=== PATIENT | male | born 1990 | race Caucasian/White ===

== ENCOUNTER 2016-06-28 11:00 | Emergency (ER) | payer OTHER ==
[2016-06-28 11:28] VITALS: RESP 14; TEMP 98.7
--- NOTE | 2016-06-28 11:54 | DI ---
LEFT FOOT, 06/28/2016 11:17 AM: Clinical History: Trauma. Previous Exam: None at this facility. 3 views are submitted. There are nondisplaced oblique fractures of the distal third of the third and fourth metatarsal bones. No other fractures are identified. There is no evidence of a Lisfranc fractu re. Reading: Nondisplaced fractures of the distal thirds of the third and fourth metatarsal bones.
--- NOTE | 2016-06-28 11:59 | PDOC ---
Foot / Ankle Injury - General Chief Complaint: Lower Extremity Problem/Injury Stated Complaint: DROPPED STEEL PIPE ON L FOOT Date Seen by Provider: 06/28/16 Time Seen by Provider: 11:10 Source: POSITIVE: Patient Exam Limitations: POSITIVE: No limitations Nurse's Notes Reviewed & Considered: Yes - History of Present Illness Initial Comments: The patient is a 25-year-old male. 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 He states he has not been able to ambulate since. Incident occurred about one hour [employer] WORK[employer]. He has no paresthesias or gross sensory or motor symptoms. He denies any other injuries. Have you received a tetanus shot in the past 10 years?: No Location: Left Foot Timing: REPORTS: Abrupt Duration: 1 hour Severity: Moderate Quality: REPORTS: "Pain" Location at Time of Onset: REPORTS: Work Context: REPORTS: Direct Blow Modifying Factors: REPORTS: Movement, Other (exacerbated by weightbearing) Associated Symptoms: DENIES: Tingling Distally, Numbness Distally, Swelling, Snapping Sensation, Popping Sensation, Other Any Prior Injuries Related to Current Complaint?: No - Patient Allergies Allergies/Adverse Reactions: Allergies Allergy/AdvReac Type Severity Reaction Status Date / Time No Known Allergies Allergy Verified 06/28/16 11:10 - Patient Home Medications Home Medications: Home Medications NK [No Home Medications Reported] 06/28/16 Past Medical History - heen HEENT History: Denies History Cardiovascular History: Hypertension Respiratory History: Denies History Gastrointestinal History: Denies History Genitourinary History: Denies History Endocrine History: Denies History Musculoskeletal History: Denies History Prosthesis or Implant: No Neurological History: Denies History Blood Disorders: Denies History Psychiatric History: Denies History History of Sexually Transmitted Diseases: No Male Reproductive History: Denies History Cancer History: Denies History In Past Year Been Physically Harmed or Verbally Threatened: No (PER PATIENT) History of MDRO: No History of Other Communicable Diseases: No Tobacco Use: Never Smoker Alcohol Use: Rarely Substance Use Type: None Previous Surgical History: Yes Type / Date of Surgery: TONSILLECTOMY Anesthesia Reactions: No Malignant Hyperthermia: No Family History of Malignant Hyperthermia: No Significant Family History: No pertinent family hx Past Medical History Reviewed: Reviewed - No Changes ROS - Limitations ROS Limitations: No Limitations Constitution: REPORTS: Denies Symptoms Cardiovascular: REPORTS: Denies Cardiac Symptoms Respiratory: REPORTS: Denies Resp Symptoms Neurological: REPORTS: Denies Neuro Symptoms Gastrointestinal: REPORTS: Denies GI Symptoms Endocrine: REPORTS: Denies Symptoms Musculoskeletal: REPORTS: Recent Injury (Left foot injury as above) Genitourinary: REPORTS: Denies Symptoms Eyes: REPORTS: Denies Symptoms ENT: REPORTS: Denies Symptoms Skin: REPORTS: Other (Contusion lateral aspect of distal left foot) Lympathic: REPORTS: Denies Lympathic Symptoms Immunologic: POSITIVE: Denies Symptoms Psychiatric: POSITIVE: Denies Psych Symptoms Foot / Ankle Exam - General Appearance General Appearance: POSITIVE: Alert, Cooperative, Mild Distress. NEGATIVE: No Acute Distress, No Evidence of Trauma (contusions swelling lateral aspect of distal left foot) - Extremities Foot: POSITIVE: Soft Tissue Tenderness, Bony Tenderness, Swelling, Ecchymosis, Limited ROM d/t Pain Ankle: POSITIVE: Normal Inspection, Non-Tender, Normal ROM, Stable Gait: POSITIVE: Gait not Tested d/t Pain Neuro: POSITIVE: Sensation Normal, Motor Normal Vascular: POSITIVE: No Vascular Compromise, Full Pulses, Equal Pulses Tendons: POSITIVE: Tendon Function Normal Skin: POSITIVE: See Diagram (ecchymosis lateral aspect of distal third fourth and fifth metatarsals) - Respiratory / CVS Respiratory / CVS: POSITIVE: Chest Non-Tender, No Respiratory Distress, Heart Sounds Normal, Regular Rate/Rhythm, Breath Sounds Normal Peripheral Pulses: Radial (R): 2+, Radial (L): 2+, Dorsalis-pedis (R): 2+, Dorsalis-pedis (L): 2+ Images - Lower Extremities Feet: 1 - Ecchymosis, swelling, tenderness Procedures - Splinting Time Splint Applied: 11:40 Location: soft cast and Cam Walker left foot and ankle Pre-Proc Neuro Vasc Exam: Normal Splint Type: CAM Walker, Crutches, Other (Soft bulky cast with web roll and Berry wrap (Acuna cast)) Splint Form: Short Extremity (As above) Applied By:: Nurse Post-Proc Neuro Vasc Exam: Normal Foot / Ankle Progress - Results Reviewed by me Pain Medication Addressed: POSITIVE: Yes, Patient Refused School/Work Release Addressed: POSITIVE: Yes (no work until cleared by orthopedist) Xrays/CTs/US Reviewed by me: Yes Discussed with Radiologist: No Radiology Results: POSITIVE: Left, Foot Radiology Findings: Oblique fractures shafts of third and fourth metatarsals at approximately the junction of the middle and distal thirds. - Patient's Progress Re-Examine Time:: 11:45 Re-Examine Comment: Soft cast and Cam Walker placed. Patient instructed in crutch walking. 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 We placed you in a bulky soft cast and Cam Walker. Please where the the dressing in Cam Walker. Use crutches and bear no weight whatsoever on your left foot. Follow-up in orthopedics in the next one or 2 days. Advil or Tylenol for pain. Elevate leg. Cool compresses. Do not return to work until cleared by orthopedics. Follow Up With: NONE,NONE [Primary Care Provider] - (Instructions as above. Follow-up in orthopedics. Return here anytime if condition worsens in any way.)
== END 2016-06-28 12:17 | disposition home or self-care (01) ==
LOC: ER 11:00
DX: S92.335A Nondisplaced fracture of third metatarsal bone, left foot, initial encounter for closed fracture (principal); S92.345A Nondisplaced fracture of fourth metatarsal bone, left foot, initial encounter for closed fracture; W20.8XXA Other cause of strike by thrown, projected or falling object, initial encounter; Y92.65 Oil rig as the place of occurrence of the external cause; Y99.0 Civilian activity done for income or pay
CPT/HCPCS: 73630; 99282; 99283

== ENCOUNTER → 2016-07-01 | Outpatient (CLI) | payer OTHER ==
--- NOTE | 2016-07-01 12:18 | DI ---
VENOUS DOPPLER ULTRASOUND OF THE LEFT LOWER EXTREMITY, 07/01/2016 10:34 AM: Clinical History: Left calf pain. Previous Exam: None. Technique: 2D real-time imaging is supplemented with color Doppler ultrasound. Compression and augmen tation maneuvers were performed. The deep venous system from the groin to the popliteal fossa is norm al. The greater saphenous vein is normal. Reading: Negative venous Doppler ultrasound of the left lower extremity.
== END ==
LOC: US 11:38
PROVIDERS: ATTEND Orthopaedic Surgery
DX: M79.662 Pain in left lower leg (principal)
CPT/HCPCS: 93971

== ENCOUNTER → 2016-07-04 | Outpatient (CLI) | payer SELFPAY ==
--- NOTE | 2016-07-04 16:47 | DI ---
XR FOOT COMPLETE MIN 3VW,07/04/2016 1:32 PM: Clinical History: Nondisplaced fracture the third metatarsal left foot. Previous Exam: June 28, 2016 Findings: 3 views of the left foot are obtained, and demonstrate nondisplaced fractures of the left third and f ourth mid metatarsals. There is some mild surrounding soft tissue thickening. Impression: Nondisplaced fractures of the left third and fourth metatarsals.
== END ==
LOC: ORTHO 13:40
PROVIDERS: ATTEND Orthopaedic Surgery
DX: S92.335A Nondisplaced fracture of third metatarsal bone, left foot, initial encounter for closed fracture (principal); S92.345A Nondisplaced fracture of fourth metatarsal bone, left foot, initial encounter for closed fracture
CPT/HCPCS: 73630

== ENCOUNTER → 2016-07-11 | Outpatient (CLI) | payer OTHER ==
--- NOTE | 2016-07-12 09:29 | DI ---
XR FOOT COMPLETE MIN 3VW,07/11/2016 1:56 PM: Clinical History: Displaced fourth metatarsal fracture. Previous Exam: July Findings: 3 views of the left foot are obtained, and demonstrate stable transverse fractures through the left t hird and fourth mid metatarsals. The surrounding soft tissues are unremarkable. There is no significa nt periosteal reaction seen at this time although there is some softening of the margins suggesting s ome early healing. Impression: Stable fractures of the left third and fourth mid metatarsals.
== END ==
LOC: ORTHO 14:04
PROVIDERS: ATTEND Orthopaedic Surgery
DX: S92.332D Displaced fracture of third metatarsal bone, left foot, subsequent encounter for fracture with routine healing (principal); S92.345D Nondisplaced fracture of fourth metatarsal bone, left foot, subsequent encounter for fracture with routine healing
CPT/HCPCS: 73630

== ENCOUNTER → 2016-07-22 | Outpatient (CLI) | payer OTHER ==
--- NOTE | 2016-07-24 15:04 | DI ---
XR FOOT COMPLETE MIN 3VW,07/22/2016 11:30 AM: Clinical History: Left third metatarsal fracture. Previous Exam: July 2016 Findings: 3 views of the left foot are obtained, and demonstrate a stable healing fractures through the left th ird and fourth metatarsals. Surrounding soft tissues are slightly prominent. There is mild displaceme nt of the third distal metatarsal. Impression: Slightly displaced fractures of the left third and fourth mid metatarsals.
== END ==
LOC: ORTHO 11:40
PROVIDERS: ATTEND Orthopaedic Surgery
DX: S92.332D Displaced fracture of third metatarsal bone, left foot, subsequent encounter for fracture with routine healing (principal); S92.342D Displaced fracture of fourth metatarsal bone, left foot, subsequent encounter for fracture with routine healing
CPT/HCPCS: 73630

== ENCOUNTER → 2016-07-28 | Outpatient (CLI) | payer SELFPAY ==
--- NOTE | 2016-07-29 14:32 | DI ---
LEFT FOOT, 07/28/2016 10:04 AM: Clinical History: Followup of closed nondisplaced fracture of the fourth metatarsal bone. Previous Exam: 07/22/2016. 3 views are submitted. There are fractures of the distal thirds of the third and fourth metatarsal keturah jesus. Alignment and position of the fourth metatarsal fracture site are anatomic with interval develop ment of periosteal new bone formation. There is one third lateral displacement of the distal head of the third metatarsal bone without angulation. Periosteal new bone formation is developing at this sit e as well. The remainder of the exam is normal. Reading: Healing fractures of the third and fourth metatarsal bones with anatomic alignment and position.
== END ==
LOC: ORTHO 10:23
PROVIDERS: ATTEND Physician Assistant
DX: S92.345D Nondisplaced fracture of fourth metatarsal bone, left foot, subsequent encounter for fracture with routine healing (principal)
CPT/HCPCS: 73630

== ENCOUNTER → 2016-08-08 | Outpatient (CLI) | payer OTHER ==
--- NOTE | 2016-08-09 09:12 | DI ---
XR FOOT COMPLETE MIN 3VW,08/08/2016 11:32 AM: Clinical History: The third and fourth metatarsal fractures. Previous Exam: Jul 28 2016 Findings: 3 views of the left foot are obtained, and demonstrate slightly displaced fractures through the left third and fourth mid metatarsals with increasing callus formation. There has been no change in alignm ent since the prior exam which is near anatomic. Impression: Continued healing of left third and fourth metatarsal fractures.
== END ==
LOC: ORTHO 12:01
PROVIDERS: ATTEND Orthopaedic Surgery
DX: S92.345D Nondisplaced fracture of fourth metatarsal bone, left foot, subsequent encounter for fracture with routine healing (principal)
CPT/HCPCS: 73630